=== PATIENT | male | born 1980 | race Asian ===

== ENCOUNTER 2017-10-08 17:39 | Emergency (ER) | payer OTHER ==
[2017-10-08 17:51] VITALS: RESP 16
--- NOTE | 2017-10-08 17:58 | EDPHY ---
H & P Stated Complaint: Abd Pain past few days-maybe increased stress-rash on skin; Source: Patient Exam Limitations: Language barrier (Wirer Helper) - Personal History Tetanus Vaccine Date: 08/31 - Medical/Surgical History Hx Asthma: No Hx Chronic Respiratory Disease: No Hx Diabetes: No Hx Cardiac Disease: No Hx Renal Disease: No Hx Cirrhosis: No Hx Alcoholism: No Hx HIV/AIDS: No Hx Splenectomy or Spleen Trauma: No Other PMH: everardo - Social History Smoking Status: Never smoked Time Seen by Provider: 10/08/17 17:54 HPI/ROS: HPI: This is a 37-year-old male presents Chief Complaint: Lower abdominal pain Location: Lower abdominal Quality: Pain Duration: 1 day Signs and Symptoms: no fever, + nausea, no vomiting, no hematemesis, no blood in stool, no abdominal bloating, no diarrhea, no back pain, no urinary symptoms , no testicular/groin pain, no penile discharge, no indigestion, no chest pain, no shortness of breath Timing:, sudden intermittent Severity: Moderate Context: Patient is generally healthy, does not take any regular medications, yesterday afternoon started to exhibit bilateral lower abdominal pain, that was cramping in nature, moderate intensity, nonradiating and has last x1 day. Two days ago he had sexual intercourse with his . Today he noticed a small red spot on the shaft of his penis; that is not painful. He reports some nausea but no fevers/vomiting/dysuria/urinary retention/penile discharge. He has no concern for STDs as he is monogamous with his . Patient had heart small bowel movement yesterday. Eating and drinking normally. Of note, his daughter was recently diagnosed with cancer. Modifying Factors: None Comment: ROS: see HPI Constitutional: No fever, no chills, no weight loss Eyes: No blurred vision Respiratory: No shortness of breath, no cough Cardiovascular: No chest pain, no palpitations Gastrointestinal: + nausea, no vomiting, no diarrhea, no hematemesis, no blood in stool Genitourinary: No dysuria, no blood in urine Extremities: No myalgias, no edema Neurologic: No weakness, no numbness Skin: No rashes, no petechiae Hematologic: No bruising, no bleeding MEDICAL/SURGICAL/SOCIAL HISTORY: Medical history: Generally healthy. Does not take any regular medications. Surgical history: Denies Social history: with child. CONSTITUTIONAL: adult male, polite and cooperative, awake and alert, no obvious distress HEENT: Atraumatic and normocephalic, PERRL, EOMI. Tympanic membranes clear. Oropharynx clear, no exudate and moist pink mucosa. Airway patent. No lymphadenopathy. No meningismus. Cardiovascular: Normal S1/S2, mild tachycardia, regular rhythm, without murmur rub or gallop. PULMONARY/CHEST: Symmetrical and nontender. Clear to auscultation bilaterally. Good air movement. No accessory muscle usage. ABDOMEN: Soft, nondistended, mild lower abdominal tenderness, no rebound, no guarding, no peritoneal signs, no masses or organomegaly. No CVAT. Normoactive bowel sounds heard x4 quadrants. : Uncircumcised, bilateral descended testes, no penile discharge, no testicular swelling/pain, small pinpoint broken capillary on the left side of the shaft EXTREMITIES: 2/2 pulses, strength 5/5, no deformities, no clubbing, no cyanosis or edema. NEUROLOGICAL: no focal neuro deficits. GCS 15. SKIN: Warm and dry, no erythema. no rash. Good capillary refill. (Ivana Patel) Constitutional: Initial Vital Signs Temperature (C) 36.8 C 10/08/17 17:48 Heart Rate 111 H 10/08/17 17:48 Respiratory Rate 16 10/08/17 17:48 Blood Pressure 130/93 H 10/08/17 17:48 O2 Sat (%) 94 10/08/17 17:48 O2 Delivery Mode Room Air Allergies/Adverse Reactions: No Known Allergies Allergy (Unverified 08/09/14 09:58) Home Medications: Medication Instructions Recorded Polyethylene Glycol 3350 [Miralax 17 gm PO DAILY #12 pkt 10/08/17 17 gm (*)] Medical Decision Making - Diagnostics Imaging Results: Imaging Impressions Abdomen CT 10/08/17 18:10 Impression: 1. Mild to moderate constipation. 2. No CT evidence of appendicitis, abscess or bowel obstruction. Findings discussed with Ivana Patel PAC at 19:40 hour, 10/08/2017. ED Course/Re-evaluation: The patient was evaluated and managed by the physician's sales and marketing assistant. My cosignature indicates that I reviewed the chart and I agree with the findings and plan of care as documented. I am the secondary supervising physician. ( Lisa Alas) Labs, urinalysis, CT abdomen and pelvis scan ordered Afebrile and no systemic signs. Penile lesion is simply a small broken capillary vessel. No signs of herpes/ genital warts/epididymitis/orchitis Urinalysis completely unremarkable. 1857: Labs reviewed and grossly unremarkable other than serum glucose of 188 (Ivana Patel) Differential Diagnosis: Abdominal pain including but not limited to appendicitis, cholecystitis, gastritis and urinary tract infection. (Ivana Patel) - Data Points Laboratory Results: Laboratory Results 10/08/17 18:20 10/08/17 18:20 10/08/17 10/08/17 10/08/17 18:20 18:20 18:20 WBC 7.87 10^3/uL 10^3/uL (3.80-9.50) RBC 5.34 10^6/uL 10^6/uL (4.40-6.38) Hgb 17.0 g/dL g/dL (13.7-17.5) Hct 49.2 % % (40.0-51.0) MCV 92.1 fL fL (81.5-99.8) MCH 31.8 pg pg (27.9-34.1) MCHC 34.6 g/dL g/dL (32.4-36.7) RDW 12.1 % % (11.5-15.2) Plt Count 214 10^3/uL 10^3/uL (150-400) MPV 10.5 fL fL (8.7-11.7) Neut % (Auto) 76.4 % H % (39.3-74.2) Lymph % (Auto) 17.9 % % (15.0-45.0) Hand % (Auto) 4.3 % L % (4.5-13.0) Eos % (Auto) 0.6 % % (0.6-7.6) Baso % (Auto) 0.5 % % (0.3-1.7) Nucleat RBC Rel Count 0.0 % % (0.0-0.2) Absolute Neuts (auto) 6.01 10^3/uL 10^3/uL (1.70-6.50) Absolute Lymphs (auto) 1.41 10^3/uL 10^3/uL (1.00-3.00) Absolute Monos (auto) 0.34 10^3/uL 10^3/uL (0.30-0.80) Absolute Eos (auto) 0.05 10^3/uL 10^3/uL (0.03-0.40) Absolute Basos (auto) 0.04 10^3/uL 10^3/uL (0.02-0.10) Absolute Nucleated RBC 0.00 10^3/uL 10^3/uL (0-0.01) Immature Gran % 0.3 % % (0.0-1.1) Immature Gran # 0.02 10^3/uL 10^3/uL (0.00-0.10) Sodium 140 mEq/L mEq/L (134-144) Potassium 4.3 mEq/L mEq/L (3.5-5.2) Chloride 98 mEq/L mEq/L (97-110) Carbon Dioxide 28 mEq/l mEq/l (22-31) Anion Gap 14 mEq/L mEq/L (8-16) BUN 20 mg/dL mg/dL (7-23) Creatinine 1.1 mg/dL mg/dL (0.7-1.3) Estimated GFR > 60 Glucose 188 mg/dL H mg/dL (70-100) Calcium 10.3 mg/dL mg/dL (8.5-10.4) Total Bilirubin 1.0 mg/dL mg/dL (0.1-1.4) Conjugated Bilirubin 0.2 mg/dL mg/dL (0.0-0.5) Unconjugated Bilirubin 0.8 mg/dL mg/dL (0.0-1.1) AST 28 IU/L IU/L (17-59) ALT 44 IU/L IU/L (21-72) Alkaline Phosphatase 60 IU/L IU/L (38-126) Total Protein 8.2 g/dL g/dL (6.3-8.2) Albumin 4.8 g/dL g/dL (3.5-5.0) Lipase 58 IU/L IU/L (23-300) Urine Color YELLOW Urine Appearance CLEAR Urine pH 6.0 (5.0-7.5) Ur Specific [place] 1.009 (1.002-1.030) Urine Protein NEGATIVE (NEGATIVE) Urine Ketones NEGATIVE (NEGATIVE) Urine Blood NEGATIVE (NEGATIVE) Urine Nitrate NEGATIVE (NEGATIVE) Urine Bilirubin NEGATIVE (NEGATIVE) Urine Urobilinogen NEGATIVE EU EU (0.2-1.0) Ur Leukocyte Esterase NEGATIVE (NEGATIVE) Urine Glucose NEGATIVE (NEGATIVE) Departure - Departure Disposition: Home, Routine, Self-Care Clinical Impression: Capillary hemangioma of skin Constipation Qualifiers: Constipation type: unspecified constipation type Qualified Code(s): K59.00 - Constipation, unspecified Condition: Good Instructions: Constipation (ED) Additional Instructions: Please drink plenty of fluids, eat a high-fiber diet that includes fruits and vegetables, and exercise daily. Take MiraLax daily until having normal soft bowel movements. The capillary hemangioma on the shaft of your penis, should slowly dissolve over the week. Referrals: RA MCELROY [Primary Care Provider] - As per Instructions Prescriptions: Polyethylene Glycol 3350 [Miralax 17 gm (*)] 17 gm PO DAILY #12 pkt
[2017-10-08 18:30] LABS: PLATELET COUNT 214 10^3/uL (150-400)
[2017-10-08] MEDS ORDERED: IOPAMIDOL (ISOVUE-300) 100 ML BTL ONE (18:49)
[2017-10-08 19:57] VITALS: BP 127/81; PULSE 91; TEMP 98.8; O2SAT 97
== END 2017-10-08 20:05 | disposition home or self-care (01) ==
DX: K59.00 Constipation, unspecified (principal); D18.01 Hemangioma of skin and subcutaneous tissue
CPT/HCPCS: Q9967

== ENCOUNTER 2018-07-09 16:29 | Emergency (ER) | payer OTHER ==
[2018-07-09 16:42] VITALS: BP 114/75
[2018-07-09] MEDS ORDERED: FLUORESCEIN SODIUM 1 MG STRIP OP ONE ×2 (17:04→17:29)
[2018-07-09] MEDS ORDERED: PROPARACAINE 0.5% 15 ML OPHT DROP ONE (17:06)
[2018-07-09] MEDS ORDERED: PROPARACAINE/FLUORESCEIN SOD 5 ML OPHT.BTL OP ONE (17:29)
[2018-07-09] MEDS ORDERED: PROPARACAINE 0.5% 15 ML OPHT DROP LEFTEYE ONE (17:31)
--- NOTE | 2018-07-09 17:42 | EDPHY ---
H & P Time Seen by Provider: 07/09/18 16:58 HPI/ROS: CHIEF COMPLAINT: Acetone injury to eye HISTORY OF PRESENT ILLNESS: 37-year-old male here with left eye irritation after he splashed acetone in his eye 1 hr prior to arrival. Denies any eye pain does reports his eye feels"dry". Denies any vision changes. 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 He irrigated his eye with water at the lab for about 5 min and then came to the ER. He does not were contacts. Takes no prescribed medications. REVIEW OF SYSTEMS: Constitutional: No fever, no chills. Eyes: No discharge. ENT: No sore throat. Cardiovascular: No chest pain, no palpitations. Respiratory: No cough, no shortness of breath. Gastrointestinal: No abdominal pain, no vomiting. Genitourinary: No hematuria. Musculoskeletal: No back pain. Skin: No rashes. Neurological: No headache. Smoking Status: Never smoked Physical Exam: General Appearance: Alert and no distress. Eyes: Pupils equal and round no injection. Respiratory: Chest is nontender, lungs are clear to auscultation. Cardiac: regular rate and rhythm. Gastrointestinal: Abdomen is soft and nontender, no masses, bowel sounds normal. Musculoskeletal: Neck is supple and nontender. Extremities have full range of motion and are nontender. Skin: No rashes or lesions. Ophthalmic: Funduscopic exam reveals pupils PERRL A. No hyphema. No scleral injection. PH testing - 7. Slight stippling to the cornea at 6 o'clock. No ulceration or evidence of open globe. Constitutional: Initial Vital Signs Temperature (C) 36.8 C 07/09/18 16:40 Heart Rate 83 07/09/18 16:40 Respiratory Rate 18 07/09/18 16:40 Blood Pressure 114/75 07/09/18 16:40 O2 Sat (%) 96 07/09/18 16:40 O2 Delivery Mode Room Air Allergies/Adverse Reactions: No Known Allergies Allergy (Verified 07/09/18 16:40) Home Medications: Medication Instructions Recorded Polyethylene Glycol 3350 [Miralax 17 gm PO DAILY #12 pkt 10/08/17 17 gm (*)] Polymyxin B Sulfate/Tmp [Polytrim 1 drops EACHEYE QID 5 Days #1 07/09/18 Opht Drops (*)] bottle Medical Decision Making ED Course/Re-evaluation: 37-year-old male here with acetone exposure to the left eye. PH is normal. There is no open globe or decreased vision. He has slight stippling of the eyes was placed on antibiotics and given ophthalmology follow-up. - Data Points Medications Given: Discontinued Medications Fluorescein Sodium (Bioglo) 1 mg OP EDNOW ONE Stop: 07/09/18 17:30 Last Admin: 07/09/18 17:32 Dose: 1 mg Proparacaine HCl (Alcaine 0.5%) 1 drops LEFTEYE ONCE ONE Stop: 07/09/18 17:32 Last Admin: 07/09/18 17:31 Dose: 1 drop Proparacaine HCl/Fluorescein Sodium (Flucaine) 2 drops OP EDNOW ONE Stop: 07/09/18 17:30 Last Admin: 07/09/18 17:33 Dose: Not Given Departure - Departure Disposition: Home, Routine, Self-Care Clinical Impression: Chemical burn due to alkali, conjunctiva, left Condition: Good Instructions: Chemical Eye Quick (ED) Additional Instructions: Return to the ER for eye pain or changes in her vision. Follow up with Ophthalmology in 2 days if you're symptoms have not resolved. Referrals: RA MCELROY [Primary Care Provider] - As per Instructions Edouard Ward MD [Medical Doctor] - As per Instructions Prescriptions: Polymyxin B Sulfate/Tmp [Polytrim Opht Drops (*)] 1 drops EACHEYE QID 5 Days #1 bottle
== END 2018-07-09 18:06 | disposition home or self-care (01) ==
DX: T26.12XA Burn of cornea and conjunctival sac, left eye, initial encounter (principal); T52.4X1A Toxic effect of ketones, accidental (unintentional), initial encounter; Y99.0 Civilian activity done for income or pay